=== PATIENT | female | born 1950 | race Caucasian/White ===

== ENCOUNTER 2020-05-05 15:12 | Emergency (ER) | payer MEDICARE ==
[~2020-05-05] VITALS: Ht 162.6 cm; Wt 58.2 kg
[2020-05-05] MEDS ORDERED: LORazepam 2 MG/ML, 1ML IVPush ONE (15:30)
--- NOTE | 2020-05-05 15:36 | NUR ---
X 2 EYE SURGERIES FOR DETACHED RETINA, MOST RECENT BEING SUNDAY. NO EYE SIGHT IN LEFT EYE. CC OF PAIN ON LEFT EYE FROM FOREHEAD DOWN TO EYE AND CHURCH. PT WAS TOLD TO COME HERE FOR PAIN MEDS FROM A WELT TREATER AT [facility] SINCE HER EYE DOC IS UNABLE TO PRESCRIBE AND SHE CAN'T GET IN WITH PCP. PT STATES SHE IS UNABLE TO SLEEP DUE TO PAIN.
[2020-05-05] MEDS ORDERED: OXYcodone/APAP 10/325MG TABLET ONE (15:55)
[2020-05-05] MEDS ORDERED: ONDANSETRON ODT 4 MG ONE (15:55)
[2020-05-05] MEDS ORDERED: ONDANSETRON ODT 4 MG PO ONE (16:30)
[2020-05-05] MEDS ORDERED: OXYcodone/APAP 10/325MG TABLET PO ONE (16:30)
[2020-05-05 17:17] VITALS: BP 131/61
== END 2020-05-05 17:26 | disposition home or self-care (01) ==
LOC: ED 15:30
DX: H57.12 Ocular pain, left eye (principal)
CPT/HCPCS: 99283; Q0162